=== PATIENT | female | born 1970 | race Caucasian/White ===

== ENCOUNTER 2016-12-06 22:39 | Emergency (ER) | payer OTHER ==
[2016-12-06 22:55] VITALS: BP 119/86; BMI 34.4
--- NOTE | 2016-12-06 23:14 | ED.PDOC ---
General ED Provider: Dr. 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 She has had prior injury to that than with two surgeries. States she felt severe pain and and limited mobility with a small abrassion. Time Seen by Physician: 23:05 Mode of Arrival: Walk-In Information Source: Patient Exam Limitations: No limitations Nursing and Triage Documentation Reviewed and Agree: Yes Musculoskeletal Complaint Exam - Hand/Wrist Complaint/Exam Location of Pain: Reports: Right, Digit #5 Mechanism of Injury: Reports: Trauma Onset/Duration: 1 hour Symptoms Are: Still present Onset of Pain: Reports: Immediate, Post accident Initial Severity: Severe Current Severity: Moderate Location: Reports: Discrete (Rigth fifth digit ) Character: Reports: Aching, Throbbing Alleviating: Reports: Rest, Cold Aggravating: Reports: Movement Associated Signs and Symptoms: Reports: Swelling Related History: Reports: Similar episode Dominant Hand: Right Related Surgical History: Reports: Other Orthopedic Surgery Hand/Wrist Findings: Present: Swelling (minimal ) Tenderness: Present: Phalanx Compartment Syndrome Risk Factors: Present: Pain. Absent: Paralysis, Pallor, Pulselessness, Paresthesias Hand Picture: 1 - Bruizing Differential Diagnoses: Abrasion, Closed Fracture, Sprain, Strain Review of Systems - Review Of Systems Constitutional: Reports: No symptoms Eyes: Reports: No symptoms Ears, Nose, Mouth, Throat: Reports: No symptoms Respiratory: Reports: No symptoms Cardiac: Reports: No symptoms GI: Reports: No symptoms : Reports: No symptoms Musculoskeletal: Reports: Joint pain Skin: Reports: No symptoms Neurological: Reports: No symptoms Endocrine: Reports: No symptoms Hematologic/Lymphatic: Reports: No symptoms All Other Systems: Reviewed and Negative Past Medical History - Past Medical History Endocrine: Reports: None Cardiovascular: Reports: None Respiratory: Reports: None Hematological: Reports: None Gastrointestinal: Reports: GERD Genitourinary: Reports: None Neuro/Psych: Reports: Depression Musculoskeletal: Reports: None Cancer: Reports: None Last Menstrual Period: 2013 - Surgical History General Surgical History: Reports: Cholecystectomy, Orthopedic (right hand surgery x 2 ), Other (Vaginal Ablation. ) - Family History Family History: Reports: None - Social History Smoking Status: Never smoker Hx Substance Use: No Alcohol Screening: None - Immunizations Tetanus Shot up to Date: Yes Physical Exam - Physical Exam Appearance: Well-appearing, No pain distress, Well-nourished Eyes: COLIN, EOMI, Conjunctiva clear ENT: Ears normal, Nose normal, Oropharynx normal Neck: Supple Respiratory: Airway patent, Breath sounds clear, Breath sounds equal, Respirations nonlabored Cardiovascular: RRR, Pulses normal, No rub, No murmur GI/: Soft, Nontender, No masses, Bowel sounds normal, No Organomegaly Musculoskeletal: Normal strength, No edema, No calf tenderness, Limited ROM ( Right pinky ) Skin: Warm, Dry, Normal color Neurological: Sensation intact, Motor intact, Reflexes intact, Cranial nerves intact, Alert, Oriented Psychiatric: Affect appropriate, Mood appropriate Interpretation - Radiology Interpretation Radiology Interpretation By: ED Physician Radiology Results: Negative Exam Interpreted: Other (Right hand. ) Critical Care Note - Critical Care Note Total Time (mins): 0 Course - Course Orders, Labs, Meds: Orders Category Date Time Status Ibuprofen [Motrin] MEDS 12/07/16 00:02 Discontinued 800 mg PO ONCE STA HAND, RIGHT 3 VIEWS Stat RADS 12/06/16 23:29 Completed Medications Discontinued Medications Generic Name Dose Route Start Last Admin Trade Name Freq PRN Reason Stop Dose Admin Ibuprofen 800 mg 12/07/16 00:02 12/07/16 00:05 Motrin PO 12/07/16 00:03 800 mg ONCE STA Administration Vital Signs: Temp Pulse Resp BP Pulse Ox 12/06/16 22:39 99.5 F 79 20 119/86 97 Departure - Departure Time of Disposition: 23:35 Disposition: HOME SELF-CARE Discharge Problem: Sprain of finger of right hand Instructions: Finger Sprain (ED) Condition: Good Pt referred to PMD for follow-up: Yes (3 days ) Additional Instructions: Rest Hand, Take Motrin as needed for pain Fallow up with PCP in 2-3 days Prescriptions: Ibuprofen [Motrin] 600 mg PO Q6H PRN #30 tablet PRN Reason: Analgesia Allergies/Adverse Reactions: Allergies Penicillins Adverse Reaction (Verified 12/06/16 22:56) Rash Sulfa (Sulfonamide Antibiotics) Adverse Reaction (Verified 12/06/16 22:56) Rash Home Medications: Ambulatory Orders Alprazolam [Xanax] 0.5 mg PO DAILY PRN 12/06/16 Furosemide [Lasix Tab] 40 mg PO DAILY 12/06/16 Omeprazole [Prilosec] 20 mg PO BIDAC 12/06/16 Sertraline HCl [Zoloft] 25 mg PO DAILY 12/06/16 Ibuprofen [Motrin] 600 mg PO Q6H PRN #30 tablet 12/07/16 Disposition Discussed With: Patient
[2016-12-06 23:35] VITALS: TEMP 99.5
[2016-12-07] MEDS ORDERED: MOTRIN PO STA (00:02)
--- NOTE | 2016-12-07 07:39 | DI ---
EXAM: Three views of the right hand HISTORY: Injury. COMPARISON: None FINDINGS: There is internal fixation hardware of the distal fourth metacarpal. There is no visualiz ed hardware fracture or loosening. There is no lytic or blastic lesion of the right hand. The join t spaces are maintained. The soft tissues are unremarkable. IMPRESSION: Internal fixation hardware in the distal fourth metacarpal. No acute osseous abnormali ty or signs of hardware loosening or fracture.
== END 2016-12-07 02:18 | disposition home or self-care (01) ==
LOC: ED 22:39
DX: S63.616A Unspecified sprain of right little finger, initial encounter (principal); W20.8XXA Other cause of strike by thrown, projected or falling object, initial encounter; Y93.9 Activity, unspecified; Y92.239 Unspecified place in hospital as the place of occurrence of the external cause
CPT/HCPCS: 99283

== ENCOUNTER 2017-02-21 07:10 | Emergency (ER) | payer OTHER ==
[2017-02-21 07:20] VITALS: BP 128/87; TEMP 98.2; BMI 33.6
--- NOTE | 2017-02-21 07:50 | ED.PDOC ---
General ED Provider: Dr. SILVA BILLY Chief Complaint: Needlestick Stated Complaint: needle stick Time Seen by Physician: 07:13 (at work with possible 3 units of injection) Mode of Arrival: Walk-In Information Source: Patient Exam Limitations: No limitations Nursing and Triage Documentation Reviewed and Agree: Yes Trauma/Injury Complaint Exam - Trauma Complaint/Exam Location of Pain or Injury: Reports: Other (needle injection left thumb) Symptoms Are: Still present Initial Severity: Mild Current Severity: None Aggravating: Reports: None Alleviating: Reports: None Associated Signs and Symptoms: Denies: LOC, Confusion, Memory loss, Lethargy, Vomiting, Bleeding, Bruising, Swelling, Extremity disuse, Painful respiration, Hoarseness, Dysphagia, Hemoptysis, Significant blood loss Nexus Low Risk Criteria: No post-midline CS tender, No evidence of intoxicat., No Altered LOC, No focal neuro deficit, No distracting injuries Glascow Coma Scale (see protocol): 15 Review of Systems - Review Of Systems Constitutional: Reports: No symptoms Eyes: Reports: No symptoms Ears, Nose, Mouth, Throat: Reports: No symptoms Respiratory: Reports: No symptoms Cardiac: Reports: No symptoms GI: Reports: No symptoms : Reports: No symptoms Musculoskeletal: Reports: No symptoms Skin: Reports: No symptoms Neurological: Reports: No symptoms Endocrine: Reports: No symptoms Hematologic/Lymphatic: Reports: No symptoms All Other Systems: Reviewed and Negative Past Medical History - Past Medical History Endocrine: Reports: None Cardiovascular: Reports: None Respiratory: Reports: None Hematological: Reports: None Gastrointestinal: Reports: GERD Genitourinary: Reports: None Neuro/Psych: Reports: Depression Musculoskeletal: Reports: None Cancer: Reports: None Last Menstrual Period: ablation - Surgical History General Surgical History: Reports: Cholecystectomy, Orthopedic (right hand surgery x 2 ), Other (Vaginal Ablation. ) - Family History Family History: Reports: None - Social History Smoking Status: Never smoker Hx Substance Use: No Alcohol Screening: None - Immunizations Tetanus Shot up to Date: Yes Physical Exam - Physical Exam Appearance: Well-appearing, No pain distress, Well-nourished Eyes: COLIN, EOMI, Conjunctiva clear ENT: Ears normal, Nose normal, Oropharynx normal Respiratory: Airway patent, Breath sounds clear, Breath sounds equal, Respirations nonlabored Cardiovascular: RRR, Pulses normal, No rub, No murmur GI/: Soft, Nontender, No masses, Bowel sounds normal, No Organomegaly Musculoskeletal: Normal strength, ROM intact, No edema, No calf tenderness Skin: Warm, Dry, Normal color Neurological: Sensation intact, Motor intact, Reflexes intact, Cranial nerves intact, Alert, Oriented Psychiatric: Affect appropriate, Mood appropriate Critical Care Note - Critical Care Note Total Time (mins): 0 Course - Course Orders, Labs, Meds: Orders Category Date Time Status ACCUCHECK (ED) [ED ACCUCHECK ASSESSMENT] .ONCE EMERGENCY 02/21/17 07:37 Active MISCELLANEOUS SEND OUT Stat LAB 02/21/17 07:32 Ordered Vital Signs: Temp Pulse Resp BP Pulse Ox 02/21/17 07:11 98.2 F 55 L 18 128/87 96 Departure - Departure Time of Disposition: 07:51 Disposition: HOME SELF-CARE Discharge Problem: Needle stick injury Instructions: Needle Stick Injuries (ED) Condition: Good Pt referred to PMD for follow-up: No Additional Instructions: Please call your Family Physician as soon as possible to schedule a follow-up appointment. Allergies/Adverse Reactions: Allergies Penicillins Adverse Reaction (Verified 02/21/17 07:19) Rash Sulfa (Sulfonamide Antibiotics) Adverse Reaction (Verified 02/21/17 07:19) Rash Home Medications: Ambulatory Orders Alprazolam [Xanax] 0.5 mg PO DAILY PRN 12/06/16 Furosemide [Lasix Tab] 40 mg PO DAILY 12/06/16 Omeprazole [Prilosec] 20 mg PO BIDAC 12/06/16 Sertraline HCl [Zoloft] 25 mg PO DAILY 12/06/16 Disposition Discussed With: Patient
== END 2017-02-21 08:05 | disposition home or self-care (01) ==
LOC: ED 07:10
DX: S61.032A Puncture wound without foreign body of left thumb without damage to nail, initial encounter (principal); W46.0XXA Contact with hypodermic needle, initial encounter; Y93.F9 Activity, other caregiving; Y92.239 Unspecified place in hospital as the place of occurrence of the external cause; Y99.0 Civilian activity done for income or pay
CPT/HCPCS: 36415; 82962; 99282

== ENCOUNTER 2017-04-30 20:54 | Outpatient (CLI) | payer OTHER ==
[2017-04-30 21:16] LABS: BASOPHILS # (AUTO) 0.1 K/uL (0-0.2); BASOPHILS % (AUTO) 0.5 % (0.0-3.0); EOSINOPHILS # (AUTO) 0.4 K/ul (0.0-0.7); EOSINOPHILS % (AUTO) 4.2 % (0.0-7.0); HEMATOCRIT 46.8 % (37.0-47.0); IMMATURE GRANULOCYTE % (AUTO) 0.2 % (0.0-5.0); LYMPHOCYTES # (AUTO) 2.6 K/uL (0.60-3.4); LYMPHOCYTES % (AUTO) 28.1 (10.0-50.0); MEAN CORPUSCULAR HEMOGLOBIN 29.4 pg (27.0-31.0); MEAN CORPUSCULAR HGB CONC 34.2 (31.8-35.4); MEAN CORPUSCULAR VOLUME 85.9 fl (81.0-99.0); MONOCYTES # (AUTO) 0.4 K/uL (0.4-2.0); NEUTROPHILS # (AUTO) 5.8 K/ul (2.0-6.9); PLATELET COUNT 315 10^3/uL (140-440); RED BLOOD COUNT 5.45 10^6/ul (4.20-5.40); WHITE BLOOD COUNT 9.26 K/ul (4.6-10.2)
[2017-04-30 21:34] LABS: ALBUMIN 3.8 g/dL (3.4-5.0); ANION GAP 15.3; BILIRUBIN,TOTAL 0.34 mg/dL (0.00-1.20); CALCIUM 9.5 mg/dL (8.2-10.2); CHOL/HDL RATIO 3.9 (4.5-5.5); CREATININE 0.7 mg/dL (0.60-1.30); POTASSIUM 4.3 mmol/L (3.5-5.10); TOTAL PROTEIN 7.6 g/dL (6.4-8.2)
== END 2017-04-30 20:55 | disposition home or self-care (01) ==
LOC: LAB 20:54
PROVIDERS: ATTEND Family Medicine
DX: Z00.00 Encounter for general adult medical examination without abnormal findings (principal)
CPT/HCPCS: 36415; 80053; 80061; 83036; 85025

== ENCOUNTER 2017-05-25 07:11 | Outpatient (CLI) | END 2017-05-25 07:12 | disposition home or self-care (01) | LOC: LAB 07:11 | PROVIDERS: ATTEND General Practice | DX: Z77.21 Contact with and (suspected) exposure to potentially hazardous body fluids (principal) | CPT/HCPCS: 36415 ==

== ENCOUNTER 2018-01-10 13:49 | Outpatient (CLI) | END 2018-01-10 13:50 | disposition home or self-care (01) | LOC: LAB 13:49 | PROVIDERS: ATTEND Family Medicine | DX: R73.09 Other abnormal glucose (principal); Z79.899 Other long term (current) drug therapy | CPT/HCPCS: 36415; 80053; 80061; 83036; 85025 ==

== ENCOUNTER 2018-02-04 01:12 | Outpatient (CLI) ==
--- NOTE | 2018-02-04 01:42 | DI ---
EXAM: Four views of the right knee. HISTORY: Right knee pain. FINDINGS: The bones are intact with no evidence of acute fracture. The joint spaces are maintained. T here is a 0.9 x 0.9 cm corticated calcification along the anterior margin of the lateral joint space consistent with a loose interarticular body. There is degenerative spurring along the margins of the medial and lateral joint compartments. No soft tissue abnormality. Impression: 0.9 x 0.9 cm loose interarticular body as described. Degenerative changes as described.
== END 2018-02-04 01:13 | disposition home or self-care (01) ==
LOC: RAD 01:12
PROVIDERS: ATTEND Family Medicine
DX: M25.561 Pain in right knee (principal)

== ENCOUNTER 2018-06-10 03:08 | Outpatient (CLI) | END 2018-06-10 03:09 | disposition home or self-care (01) | LOC: LAB 03:08 | PROVIDERS: ATTEND Family Medicine | DX: Z02.0 Encounter for examination for admission to educational institution (principal) | CPT/HCPCS: 36415; 86706; 86762; 86787 ==